=== PATIENT | female | born 1965 ===

== ENCOUNTER → 2017-07-13 | Day surgery (SDC) | payer OTHER ==
[2017-07-04 13:09] VITALS: Ht 161.3 cm; Wt 63.6 kg
[~2017-07-13] VITALS: Ht 161.3 cm; Wt 63.6 kg
[~2017-07-13] MED LIST: AMPH10TA2 PO; AMPH30CA3 PO; ASPCH81X PO; ATROPINE SULFATE 0.1 MG/ML 5ML SYR IV PRN; BUPIVACAINE/EPINEPHRINE 0.25% 1:200,000 30 ML VIAL ONE; CEFAZOLIN 2000MG IV PUSH 10 ML IV SCH; CETI10TA84 PO; CLB/200 PO; DEXAMETHASONE SOD INJ 4 MG/ML VIAL ONE; ESTR0.5T5 PO; EpHEDrine SULFATE INJ 50 MG/ML AMP IV PRN; EpHEDrine SULFATE INJ 50 MG/ML AMP ONE; EpINEphrine INJ 1MG/ML AMP 1 MG/ML AMP ONE; FENTANYL CITRATE INJ 50 MCG/1 ML 2 ML VIAL IV PRN; FENTANYL CITRATE INJ 50 MCG/1 ML 2 ML VIAL ONE; FURO20TA PO; HYDR-4383 PO; HYDROmorphone INJ 1 MG/ML SYR IV PRN; KETO10TA PO; LACTATED RINGER'S 1000ML 1,000 ML IV SCH; LEFL20TA PO; LIDOCAINE HCL 2% 2 ML VIAL (20MG/ML) ONE; MELA1TAB9 PO; MIDAZOLAM HCL 1 MG/ML 2ML VIAL ONE; MONT1TAB3 PO; ONDANSETRON INJ 2 MG/ML 2 ML VIAL IV PRN; ONDANSETRON INJ 2 MG/ML 2 ML VIAL ONE; OXYC-57 PO; OXYCODONE/ACETAMINOPHEN 5-325 TAB PO PRN; PROMETHAZINE HCL INJ 12.5 MG in SODIUM CHLORIDE 0.9% 50ML 50 ML IV PRN; PROPOFOL IV EMULSION 10 MG/ML 20 ML VIAL IV ONE; RANI150T3 PO; ROPIVACAINE 0.5% 5 MG/ML 30 ML VIAL ONE; SERT-234 PO; SODIUM CHLORIDE 0.9% 1000ML 1,000 ML IV SCH; SUMA50TA15 PO; TRAM-10 PO; TRAZ50TA35 PO; VALS40TA2 PO; ZOLP10TA PO
--- NOTE | 2017-07-13 07:01 | History & Physical Bridge - [place] ---
H&P Re-Evaluation Bridge Note: I have examined the patient, reviewed the History & Physical and in the interval since the performance of the History & Physical I have noted the following changes of clinical significance: No changes noted
[2017-07-13] MEDS: LACTATED RINGER'S 1000ML 1,000 ML IV SCH ×2 (09:05→11:03)
--- NOTE | 2017-07-13 10:28 | Discharge Instructions-SurgCtr ---
Discharge Instructions Date of Service Jul 13, 2017. Visit Reason for Visit: Shoulder Pain,Disorder Of Acromioclavicular Joint Discharge Discharge Diagnosis / Problem: SAME ABOVE Discharge Goals Goal(s): Decrease discomfort, Improve function Medications Stopped Medications Name(s): dID NOT TAKE LAST 2 DAYS OF MEDROL DOSE ALEXSANDRA. LAST DOSE LAST NIGHT. Restart Stopped Medication(s): DO NOT RESTART THE MEDROL DOSE PACK MAY TAKE ANTI INFLAMMATORIES ONCE YOU ARE FINISHED WITH THE TORADOL TAKE TORADOL EVERY 8 HOURS WITH FOOD Activity Recommendations Activity Limitations: as noted below Lifting Limitations: gradually increase as tolerated Exercise/Sports Limitations: gradually increase as tolerated Shower/Bathe: tomorrow Driving or Machine Use: WHEN OUT OF THE SLING AND OFF OF PAIN MEDICATION Anesthesia . Post Anesthesia Instructions: If you have had General Anesthesia or IV Sedation: * Do not drive today. * Resume driving when surgeon permits. * Do not make important decisions or sign legal documents today. * Call surgeon for: 1. Temperature elevations greater than 101 degrees F. 2. Uncontrollable pain. 3. Excessive bleeding. 4. Persistent nausea and vomiting. 5. Medication intolerance (nausea, vomiting or rash). * For nausea and vomiting use only clear liquids such as: tea, soda, bouillon until nausea subsides, then gradually increase diet as tolerated. * If you have any concerns or questions, call your surgeon's office. If physician is unavailable and it is an emergency, call 911 or go to the nearest emergency room. . Instructions / Follow-Up Instructions / Follow-Up MEDICATIONS: * Resume previous medications unless instructed otherwise by your surgeon. * Always take pain medication on a full stomach or with food to avoid upset stomach. * Do not drink alcohol or drive while taking narcotics. * Ibuprofen or Tylenol may be taken if narcotic not needed. SPECIAL CARE INSTRUCTIONS: __ None _X_ Keep extremity elevated and iced x 48 hours; apply ice 20-30 minutes 8-10 times/day. May remove at night. _X_ Sling (WEAR FOR COMFORT ONLY) __24 hrs/day __ Remove at night __ Shoulder Immobilizer __ 24 hrs/day __ Remove at night _X_ Dressing __ Maintain until seen in office, may shower with plastic over site _X_ Remove dressings in 24-48 hours and then may shower _X_ Cover incisions with band-aids after showering __ Do not remove steri-strips Call physician if chills or temperature rises above 102 degrees or pain unrelieved by prescribed pain medications at . . Diet Recommendations Home Diet: no limitations Fluid Restriction: None Procedures Procedures Performed: Left Shoulder Arthroscopy Distal clavicle Resection Subacromial Decompression, Biceps Tenotomy Pending Studies Studies pending at discharge: no Work Instructions Return To Work: after follow-up Medical Emergencies . Who to Call and When: Medical Emergencies: If at any time you feel your situation is an emergency, please call 911 immediately. . Non-Emergent Contact Non-Emergency issues call your: Primary Care Provider Call Non-Emergent contact if: you have a fever . . "Provider Documentation" section prepared by Zach Gonsales. .
[2017-07-13 11:24] VITALS: TEMP 36.8
--- NOTE | 2017-07-13 11:52 | Anesthesia Progress Nt - [facility] ---
Anesthesia Post Op Note Date & Time Jul 13, 2017 at 11:51 Vital Signs Pain Intensity: 0 Vital Signs Past 12 Hours Date Time Temp Pulse Resp B/P (MAP) Pulse Ox O2 Delivery O2 Flow Rate FiO2 07/13/17 11:24 36.8 88 16 138/84 (102) 98 Room Air 07/13/17 11:11 36.5 101 15 133/80 95 Room Air 07/13/17 11:11 95 17 07/13/17 11:11 94 17 94 07/13/17 11:10 133/80 07/13/17 11:06 101 15 07/13/17 11:06 102 15 95 07/13/17 11:06 102 15 95 07/13/17 11:06 101 15 07/13/17 11:05 124/78 07/13/17 11:05 124/78 07/13/17 11:01 83 14 94 07/13/17 11:01 86 14 07/13/17 11:01 86 14 07/13/17 11:01 83 14 94 07/13/17 11:00 138/75 07/13/17 11:00 138/75 07/13/17 10:56 93 14 124/71 95 07/13/17 10:56 93 14 124/71 95 07/13/17 10:56 92 14 07/13/17 10:56 92 14 07/13/17 10:51 88 23 120/100 97 07/13/17 10:51 87 23 07/13/17 10:51 88 23 120/100 97 07/13/17 10:51 87 23 07/13/17 10:46 87 16 131/83 99 07/13/17 10:46 86 16 07/13/17 10:46 87 16 131/83 99 07/13/17 10:46 86 16 07/13/17 10:41 91 19 99 07/13/17 10:41 91 19 99 07/13/17 10:41 91 19 07/13/17 10:41 91 19 07/13/17 10:40 151/85 07/13/17 10:40 151/85 07/13/17 10:36 97 16 99 07/13/17 10:36 97 16 07/13/17 10:36 97 16 99 07/13/17 10:36 97 16 07/13/17 10:35 139/87 07/13/17 10:35 139/87 07/13/17 10:31 93 16 07/13/17 10:31 16 07/13/17 10:31 93 16 07/13/17 10:31 16 07/13/17 10:27 146/92 07/13/17 10:27 146/92 07/13/17 10:26 36.3 102 12 146/92 100 Mask 6 07/13/17 09:20 85 15 153/86 07/13/17 09:15 84 12 140/88 100 07/13/17 09:15 86 07/13/17 09:10 84 07/13/17 09:10 88 13 146/92 100 07/13/17 09:05 85 16 147/91 100 07/13/17 09:05 86 16 07/13/17 08:06 36.8 88 16 158/94 (115) 98 Room Air Notes Mental Status: alert / awake / arousable, participated in evaluation Pt Amnestic to Procedure: Yes Nausea / Vomiting: adequately controlled Pain: adequately controlled Airway Patency, RR, SpO2: stable & adequate BP & HR: stable & adequate Hydration State: stable & adequate Anesthetic Complications: no major complications apparent Doing well. Pain controlled, no n/v. VSS. Ready for d/c
[2017-07-13 11:54] VITALS: BP 140/79; PULSE 84; O2SAT 99
--- NOTE | 2017-07-13 13:43 | [facility] Post Operative Brief Note ---
Immediate Operative Summary Operative Date Jul 13, 2017. Pre-Operative Diagnosis Left Shoulder Pain, Disorder of Acromioclavicular Joint Post-Operative Diagnosis Same Procedure(s) Performed Left Shoulder Arthroscopy Distal clavicle Resection Subacromial Decompression, Biceps Tenotomy Surgeon Dr. Alyson Liu Outside Collector Surgeon(s) Ashley Gonsales PA-C Estimated Blood Loss 5ml Findings as above Specimens none Complication(s) None Disposition Recovery Room / PACU
--- NOTE | 2017-07-13 19:48 | OPERATIVE REPORT ---
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 POSTOPERATIVE DIAGNOSES: Same. PROCEDURE: Left shoulder diagnostic arthroscopy with limited debridement, acromioplasty, biceps tenotomy and distal clavicle resection. SURGEON: Dr. Albaro Liu. PR MANAGER: Kannan Gonsales PA-C, whose assistance was necessary for positioning the arm and helping with instrumentation. ANESTHESIA: General with a left interscalene nerve block. COMPLICATIONS: None. CONDITION: Stable to PACU. INDICATIONS: Maeve is a pleasant 51-year-old female who has been dealing with an 18-month history of left shoulder pain. X-rays, MRI and clinical examination were al diagnostic for AC joint arthritis and external impingement with some biceps tendonitis. After failing conservative treatment, she elected to undergo arthroscopy. DESCRIPTION OF PROCEDURE: On 07/13/2017, she arrived at [facility] for the above procedure. She was seen in the preoperative holding area and the operative extremity was identified and signed. She was given a preoperative antibiotic and a left interscalene nerve block. She was taken back to the operating room, laid on the table in supine position and put under general anesthesia. She was then put into the beachchair position, the left shoulder was prepped and draped in sterile fashion, a time-out was done and the patient and operative extremity was properly identified. A scope was introduced in the posterior portal. Diagnostic arthroscopy showed no cartilage damage to the humeral head or the glenoid. There was some significant fraying of the superior labrum and the biceps tendon appeared to be detaching from the biceps tuberosity. There was some redness and fraying along the biceps tendon. The supraspinatus, infraspinatus, teres minor, and subscapularis were all checked and intact. An anterior portal was made. A shaver was used to do a limited debridement of the intraarticular structures and the biceps tendon was arthroscopically tenotomized. The scope was then put into the subacromial space. A lateral portal was made. A shaver was used to do a complete subacromial and subdeltoid bursectomy. An ablator was used to tease the coracoacromial ligament off the undersurface of the acromion and a 5-0 fredrick was used to complete an acromioplasty of a large Bigliani type 3 acromion. A shaver was used to remove any excess debris and the bursal side of the rotator cuff was examined extensively without evidence of tear. Attention was then turned to the distal clavicle through an anterior portal, a shaver and ablator were used to skeletonize the distal clavicle, a 5-0 fredrick was used to resect the distal 5 mm from the clavicle and complete resection was checked under direct visualization. A shaver was used to remove any excess debris and final diagnostic arthroscopy showed no additional pathology. Arthroscopic instruments removed from the shoulder. Portal sites were closed with 3-0 nylon. She was then placed in a soft dressing and a regular arm sling. She was then extubated, transferred to a litter and taken to the postanesthesia care unit in stable condition. She tolerated the procedure well. I attest to the content of the Intraoperative Record and any orders documented therein. Any exception s are noted below.
== END | disposition home or self-care (01) ==
LOC: X.SURG 07:50
PROVIDERS: ATTEND Orthopaedic Surgery
DX: M75.42 Impingement syndrome of left shoulder (principal); M75.22 Bicipital tendinitis, left shoulder; M19.012 Primary osteoarthritis, left shoulder; I10 Essential (primary) hypertension; F41.9 Anxiety disorder, unspecified; F32.9 Major depressive disorder, single episode, unspecified; Z98.51 Tubal ligation status; Z68.25 Body mass index [BMI] 25.0-25.9, adult; Z88.1 Allergy status to other antibiotic agents; Z98.890 Other specified postprocedural states; Z90.711 Acquired absence of uterus with remaining cervical stump; Z90.89 Acquired absence of other organs; Z79.899 Other long term (current) drug therapy; Z83.3 Family history of diabetes mellitus; Z82.49 Family history of ischemic heart disease and other diseases of the circulatory system